=== PATIENT | female | born 1990 | race Hispanic/Latino ===

== ENCOUNTER 2019-11-27 17:38 | Emergency (ER) | payer BC ==
[~2019-11-27 17:38] MED LIST: IBUP-2077 PO; PREN-64 PO
[2019-11-27] MEDS ORDERED: ACETAMINOPHEN 325 MG TAB ONE (18:59)
== END 2019-11-27 19:10 | disposition home or self-care (01) ==
LOC: EDH 17:38
DX: S06.0X0A Concussion without loss of consciousness, initial encounter (principal); W18.39XA Other fall on same level, initial encounter; Y93.89 Activity, other specified; Y92.89 Other specified places as the place of occurrence of the external cause; Y99.8 Other external cause status
CPT/HCPCS: 70450

== ENCOUNTER 2021-09-26 02:38 | Observation (INO) | payer BC ==
[~2021-09-26] VITALS: Ht 162.6 cm; Wt 76.7 kg
[2021-09-26 02:43] VITALS: BP 118/81
[2021-09-26 03:14] LABS: APPEARANCE,URINE Clear (CLEAR); BILIRUBIN,URINE Negative (NEGATIVE); COLOR,URINE Yellow (YELLOW); GLUCOSE, URINE (UA) Negative (NEGATIVE); KETONES,URINE Negative (NEGATIVE); LEUKOCYTE ESTERASE ,URINE Trace (NEGATIVE); NITRATE,URINE Negative (NEGATIVE); OCCULT BLOOD,URINE Negative (NEGATIVE); PROTEIN,URINE Negative (NEGATIVE)
[2021-09-26 03:22] LABS: AMPHET/METH SCREEN,URINE NEGATIVE (NEGATIVE); BARBITURATE SCREEN, URINE NEGATIVE (NEGATIVE); BENZODIAZEPINES SCREEN,URINE NEGATIVE (NEGATIVE); CANNABINOID SCREEN,URINE NEGATIVE (NEGATIVE); COCAINE SCREEN,URINE NEGATIVE (NEGATIVE); OPIATE SCREEN,URINE NEGATIVE (NEGATIVE); PHENCYCLIDINE SCREEN,URINE NEGATIVE (NEGATIVE)
[2021-09-26 03:28] LABS: BACTERIA,URINE Rare /HPF (None Seen); RBC,URINE 0-1 /HPF (0-1)
[2021-09-26 03:29] LABS: SQUAMOUS EPITHELIAL CELL,UR 0-2 /HPF (0-2)
[2021-09-26] MEDS ORDERED: LACTATED RINGERS 1000ML 1,000 ML IV SCH (04:30)
[2021-09-26] MEDS ORDERED: PREN-196 PO (04:56)
== END 2021-09-26 07:15 | disposition home or self-care (01) ==
LOC: EDH 02:38 → INTOOBSV 02:39 → LDH 02:39 → OBSVTOIN 02:39
PROVIDERS: ADMIT Obstetrics & Gynecology; ATTEND Obstetrics & Gynecology
DX: O26.893 Other specified pregnancy related conditions, third trimester (principal); R10.9 Unspecified abdominal pain; Z3A.37 37 weeks gestation of pregnancy; Z79.899 Other long term (current) drug therapy
CPT/HCPCS: 59025; 80305; 81001; 96360; 96361; G0378 ×3; J7120

== ENCOUNTER 2021-10-23 05:50 | Inpatient (IN) | payer BC ==
[~2021-10-23] VITALS: Ht 162.6 cm; Wt 80.7 kg
[~2021-10-23 05:50] MED LIST changes: +PREN-196 PO
[2021-10-23 06:39] LABS: APPEARANCE,URINE CLEAR (CLEAR); BILIRUBIN,URINE NEGATIVE (NEGATIVE); COLOR,URINE YELLOW (YELLOW); GLUCOSE, URINE (UA) NEGATIVE (NEGATIVE); KETONES,URINE NEGATIVE (NEGATIVE); LEUKOCYTE ESTERASE ,URINE NEGATIVE (NEGATIVE); NITRATE,URINE NEGATIVE (NEGATIVE); OCCULT BLOOD,URINE NEGATIVE (NEGATIVE); PH,URINE 6.5 (5.0-8.0); PROTEIN,URINE NEGATIVE (NEGATIVE); UROBILINOGEN,URINE 0.2 mg/dL (0.2-1.0)
[2021-10-23 06:40] LABS: AMPHET/METH SCREEN,URINE NEGATIVE (NEGATIVE); BARBITURATE SCREEN, URINE NEGATIVE (NEGATIVE); BENZODIAZEPINES SCREEN,URINE NEGATIVE (NEGATIVE); CANNABINOID SCREEN,URINE NEGATIVE (NEGATIVE); COCAINE SCREEN,URINE NEGATIVE (NEGATIVE); OPIATE SCREEN,URINE NEGATIVE (NEGATIVE); PHENCYCLIDINE SCREEN,URINE NEGATIVE (NEGATIVE)
[2021-10-23] MEDS ORDERED: OXYTOCIN-LR 20 UNITS/1000 ML 1,000 ML IV SCH ×3 (07:30→09:30)
[2021-10-23] MEDS ORDERED: LACTATED RINGERS 1000ML 1,000 ML IV PRN (07:30)
[2021-10-23] MEDS: LACTATED RINGERS 1000ML 1,000 ML IV SCH (07:45)
[2021-10-23 08:21] LABS: HEMATOCRIT 32.7 % (36-48); MEAN CORPUSCULAR HEMOGLOBIN 29.6 pg (27.0-33.0); MEAN CORPUSCULAR HGB CONC 32.7 g/dL (32.0-36.0); MEAN CORPUSCULAR VOLUME 90.6 fL (79-99); RED BLOOD CELL COUNT(AUTO) 3.61 MIL/uL (4.00-5.50); WHITE BLOOD COUNT (AUTO) 10.3 K/uL (4.8-10.8)
[2021-10-23] MEDS ORDERED: LIDOCAINE HCL 1% 20 ML VIAL ONE (08:43)
[2021-10-23] MEDS ORDERED: ACETAMINOPHEN WITH CODEINE 1 TAB TAB PO PRN (09:30)
[2021-10-23] MEDS ORDERED: LANOLIN 30GM OINTMENT TP PRN (09:30)
[2021-10-23] MEDS ORDERED: IBUPROFEN 600 MG TABLET PO PRN (09:30)
[2021-10-23] MEDS ORDERED: WITCH HAZEL 1 PAD TP PRN (09:30)
[2021-10-23] MEDS ORDERED: DIPH,PERTUSS(ACELL),TET VAC/PF 0.5 ML VIAL IM PRN (09:30)
[2021-10-23] MEDS ORDERED: BENZOCAINE/LANOLIN/ALOE VERA 60 ML AEROSOL TP PRN (09:30)
[2021-10-23] MEDS ORDERED: ACETAMINOPHEN 325 MG TAB PO PRN (09:30)
[2021-10-23] MEDS ORDERED: MEASLES/MUMPS/RUBELLA VACCINE, LIVE 0.5 ML/VIAL SQ PRN (09:30)
[2021-10-23 10:57] VITALS: BP 120/70
[2021-10-23 12:10] VITALS: BP 115/64
[2021-10-23 13:50] VITALS: BP 122/62
[2021-10-23 19:40] VITALS: BP 115/69
[2021-10-23] MEDS: DOCUSATE SODIUM 100 MG CAP PO SCH (20:34)
[2021-10-23 23:06] VITALS: BP 114/63
[2021-10-24 03:14] VITALS: BP 113/77
[2021-10-24] MEDS: LACTATED RINGERS 1000ML 1,000 ML IV SCH (06:00)
[2021-10-24 06:38] LABS: MEAN CORPUSCULAR HEMOGLOBIN 29.9 pg (27.0-33.0); MEAN CORPUSCULAR HGB CONC 32.5 g/dL (32.0-36.0); RED BLOOD CELL COUNT(AUTO) 3.48 MIL/uL (4.00-5.50); RED CELL DISTRIBUTION WIDTH 14.3 % (11.0-15.5); WHITE BLOOD COUNT (AUTO) 11.8 K/uL (4.8-10.8)
[2021-10-24 06:44] VITALS: BP 103/70
[2021-10-24] MEDS: DOCUSATE SODIUM 100 MG CAP PO SCH (09:16)
[2021-10-24 11:18] VITALS: BP 122/78
== END 2021-10-24 12:45 | disposition home or self-care (01) | DRG 807 ==
LOC: EDH 05:50 → LDH 05:51 → OBSVTOIN 05:51 → WSH 10:45
PROVIDERS: ADMIT Obstetrics & Gynecology; ATTEND Obstetrics & Gynecology
PROC: 10E0XZZ Delivery of Products of Conception, External Approach (ICD-10-PCS; principal; 2021-10-23)
PROC: 0HQ9XZZ Repair Perineum Skin, External Approach (ICD-10-PCS; 2021-10-23)
DX: O69.1XX0 Labor and delivery complicated by cord around neck, with compression, not applicable or unspecified (principal); Z37.0 Single live birth; O70.0 First degree perineal laceration during delivery; Z3A.39 39 weeks gestation of pregnancy; Z88.8 Allergy status to other drugs, medicaments and biological substances
CPT/HCPCS: 36415; 80305; 81003; 85027; 86592; 86850; 86900; 86901; 87340; G0378; J2590

== ENCOUNTER 2024-06-21 21:37 | Emergency (ER) | payer BC ==
[~2024-06-21] VITALS: Ht 162.6 cm; Wt 63.5 kg
[~2024-06-21 21:37] MED LIST changes: -IBUP-2077 PO; +IBUP-2088 PO; -PREN-64 PO
--- NOTE | 2024-06-21 21:48 | ERN ---
ED Note History of Present Illness Stated Complaint: C/O PAIN TO THROAT, RASH TO NECK; FEVER Chief Complaint: Allergic Reaction Time Seen by MD: 21:43 Dictation: PATIENT IS A 34-YEAR-OLD FEMALE COMING IN TODAY WITH HAVING A SORE THROAT WITH A RASH TO HER NECK AND FEVER WITH 101.4 IN TRIAGE. SHE STATES HE HAS HAD THIS ONSET TODAY, DOES HAVE AN REACTION TO CERTAIN FOODS AND HAD FOOD WITH VANILLA EXTRACT IN AT THIS EVENING WHICH MAY HAVE CAUSED IT. Allergies: Coded Allergies: banana (Unverified Allergy, Unknown, 04/08/15) ofloxacin (Unverified Allergy, Unknown, ITCHING, 04/08/15) red and itchy Home Meds Reported Medications Ibuprofen (Motrin/Advil) 600 Mg Tab, 600 MG PO Q8H, #15 TAB 06/17/23 Vit No.124/Iron/FA ( Vitamin Tablet) 1 Each Tablet, 1 EACH PO DAILYDINNER, TAB 09/26/21 Past Medical History Past Medical History: No Pertinent History Surgical History: Other Surgical History Other: D AND C PSYCH History: no pertinent psych hx History: Not Applicable : 6 Para: 4 Aborts: 1 RN Note Reviewed/Agreed w/PFSH: Yes Review of System Dictation CONSTITUTIONAL: NEGATIVE EXCEPT FOR HPI HEAD/FACE: NEGATIVE EXCEPT FOR HPI EENT: NEGATIVE EXCEPT FOR HPI SORE THROAT WITH RESPIRATORY: NEGATIVE EXCEPT FOR HPI GASTROINTESTINAL/ABDOMINAL: NEGATIVE EXCEPT FOR HPI GENITOURINARY: NEGATIVE EXCEPT FOR HPI MUSCULOSKELETAL: NEGATIVE EXCEPT FOR HPI INTEGUMENTARY: NEGATIVE EXCEPT FOR HPI PAINFUL SWALLOWING MACULAR RASH NEUROLOGICAL/PSYCH: NEGATIVE EXCEPT FOR HPI HEMATOLOGIC/LYMPHATIC: NEGATIVE EXCEPT FOR HPI ALL SYSTEMS NEGATIVE, EXCEPT NOTED ABOVE. 13 POINT REVIEW OF SYSTEMS ASSESSED AND ALL NEGATIVE EXCEPT FOR ABOVE. Initial Vital Sign VS Vital Signs Date Time Temp Pulse Resp B/P (MAP) Pulse Ox O2 Delivery O2 Flow Rate FiO2 06/21/24 21:42 101.3 105 20 147/91 97 Room Air Physical Exam Dictation VITAL SIGNS REVIEWED GENERAL APPEARANCE: ALERT, ORIENTED X 3, NO ACUTE DISTRESS, WELL DEVELOPED, NOURISHED. HEAD AND FACE: NON-TRAUMATIC. EYES: PERRL, PINK CONJUNCTIVAS, EYELID NO TRAUMA, ANTERIOR CHAMBER WITH ARCUS SENILIS. EARS: PINNAS INTACT AND NO SIGNS OF TRAUMA OR ERYTHEMA EAR CANALS CLEAR AND NO DISCHARGE TM NO ERYTHEMA NOSE: NO DISCHARGE, NO BLEEDING. OROPHARYNX: MOUTH NORMAL, TONGUE PINK, PHARYNX CLEAR,NO ERYTHEMA, TONSIL 2/4 BILATERALLY AND CRYPTIC, NO ABSCESSES NOTED, MUCOUS MEMBRANE MOIST UVULA MIDLINE, POSITIVE SOME TONSILLAR LY MPHADENOPATHY NECK: SUPPLE, NON-TENDER, NO THYROMEGALY, NO MASSES, NO JVD, NO BRUITS BREAST:DEFERRED CHEST:NO TENDERNESS, NO CREPITUS, NO PARADOXICAL MOVEMENT, NO RETRACTIONS LUNGS:CLEAR, WELL-VENTILATED, SYMMETRIC, NO RALES, NO WHEEZING, NO RHONCHI, NO STRIDOR, GOOD BREATH SOUNDS BILATERALLY HEART: REGULAR RATE, REGULAR RHYTHM, NO MURMUR, NO GALLOPS VASCULAR: NO PERIPHERAL EDEMA, ABDOMEN: SOFT, POSITIVE BOWEL SOUNDS, NONDISTENDED, NO GUARDING, NONTENDER, NO REBOUND, NO MASSES NO HEPATOMEGALY, NO SPLENOMEGALY, NO TAN'S SIGN, NO HERNIAS. RECTAL: DEFERRED GENITAL: DEFERRED NEUROLOGICAL: NORMAL SPEECH, MOTOR FUNCTION INTACT, SENSORY FUNCTION INTACT MUSCULOSKELETAL: NECK NONTENDER, FULL RANGE OF MOTION, BACK NONTENDER, FULL RANGE OF MOTION, EXTREMITIES: NONTENDER, FULL RANGE OF MOTION SKIN: COLOR PINK, DRY, NO TURGOR, NO RASH, NO LACERATIONS, NO ABRASIONS, NO CONTUSIONS. LYMPHATIC: DEFERRED Results (Laboratory/Radiology) Laboratory/Radiology Laboratory Tests Test 06/21/24 21:48 Influenza Type A Antigen Negative For Type A Influenza Type B Antigen Negative For Type B SARS-CoV-2 Antigen (Rapid) PRESUMPTIVE NEGATIVE Group A Streptococcus Rapid positive (NEGATIVE) *A Labs Reviewed?: Yes ED Course ED Course Orders Procedure Category Date Status Time Rapid (Group A Strep) LAB 06/21/24 Complete 21:45 Covid19 (Sars Antigen LAB 06/21/24 Complete Rapid) 21:45 Acetaminophen 500mg PHA 06/21/24 Complete Tab (Tylenol 500mg T 22:00 Influenza Type A & B, LAB 06/21/24 Complete Rapid 21:47 Amox/Clav 875/125mg PHA 06/21/24 Verified Tab (Augmentin 875-1 23:30 Current Medications Medications (Trade) Dose Ordered Sig/Jose Route PRN Reason Start Time Stop Time Status Last Admin Dose Admin Acetaminophen (TYLenol 500MG TAB) 1,000 mg ONCE ONCE PO 06/21/24 22:00 06/21/24 22:01 DC 06/21/24 22:58 Vital Signs Date Time Temp Pulse Resp B/P (MAP) Pulse Ox O2 Delivery O2 Flow Rate FiO2 06/21/24 21:42 101.3 105 20 147/91 97 Room Air 09/21/2004 PATIENT HAS POSITIVE STREP THROAT WE WILL BE GIVEN AUGMENTIN 875 AND DISCHARGED HOME. Medical Decision Making MDM MEDICAL DECISION-MAKING BASED ON SWABS FOR FLU COVID AND STREP AND TREATED FOR FEVER. PATIENT HAS A POSITIVE STREP THROAT AUGMENTIN ADMINISTERED DISCHARGED HOME DX & DISP Disposition: Discharge Departure Impression: Primary Impression: Acute streptococcal tonsillitis Additional Impression: Fever Condition: Stable Scripts Amoxicillin/Potassium Clav (Amox Tr-K Clv 875-125 mg Tab) 875 Mg-125 Mg Tablet 1 EACH PO BID for 7 Days, #14 TAB 0 Refills Prov: LANCE KOEHLER NP 06/21/24 Additional Instructions: FOLLOW-UP WITH PRIMARY CARE PROVIDER IN 1 TO 2 DAYS. TAKE MEDICATIONS DIRECTED HERE IN THE EMERGENCY ROOM. OKAY TO CONTINUE HOME MEDICATIONS UNLESS OTHERWISE DISCUSSED DURING YOUR VISIT IN THE EMERGENCY ROOM TODAY. RETURN TO YOUR NEAREST EMERGENCY ROOM IF SYMPTOMS WORSEN OR IF THERE IS NO IMPROVEMENT. CALL 911 IF YOU NEED IMMEDIATE ASSISTANCE. TAKE TYLENOL OR MOTRIN [id number] NEEDED AND IF NO CONTRAINDICATIONS ARE PRESENT. INCREASE ORAL HYDRATION. A WOUND CULTURE OR URINE CULTURE WAS ORDERED HERE IN THE EMERGENCY ROOM DEPARTMENT PLEASE FOLLOW-UP WITH PRIMARY CARE PROVIDER AND ADVISE THEM TO GET REPEAT PORTS FROM OUR FACILITY. IF YOU HAD ANY GOMEZ WRAP/SPLINTS THAT WERE APPLIED HERE, PLEASE DO NOT REMOVE THEM UNTIL YOU SEE YOUR PRIMARY CARE OR SPECIALTY. TAKE ANTIBIOTICS DIRECTED UNTIL GONE, INCREASE YOUR FLUID INTAKE. SEE YOUR PRIMARY CARE DOCTOR OR LOCAL CLINIC FOR FOLLOW UP. Referrals: MARILIA CHONG Jr., MD (PCP) Time of Disposition: 23:07 I have reviewed the case, and I agree with, Diagnosis and Plan LANCE KOEHLER NP Jun 21, 2024 21:48
[2024-06-21 22:56] LABS: COVID19 (SARS ANTIGEN RAPID) PRESUMPTIVE NEGATIVE (NEGATIVE); INFLUENZA TYPE A Negative For Type A (NEGATIVE); INFLUENZA TYPE B Negative For Type B (NEGATIVE)
[2024-06-21] MEDS: acetaMINOPHEN 500 MG TABLET PO ONE (22:58)
[2024-06-21 23:02] LABS: RAPID GROUP A STREP positive (NEGATIVE)
[2024-06-21] MEDS ORDERED: AMOX1TAB16 PO (23:08)
[2024-06-21] MEDS: AMOX/CLAV 875/125MG TAB PO ONE (23:15)
[2024-06-21 23:20] VITALS: BP 142/88; PULSE 94; RESP 16; TEMP 99; O2SAT 99
== END 2024-06-21 23:24 | disposition home or self-care (01) ==
LOC: EDH 21:37
DX: J03.00 Acute streptococcal tonsillitis, unspecified (principal); R21 Rash and other nonspecific skin eruption; Z20.822 Contact with and (suspected) exposure to COVID-19; Z88.1 Allergy status to other antibiotic agents
CPT/HCPCS: 87426; 87804; 87880; 99283